=== PATIENT | female | born 1945 | race Caucasian/White ===

== ENCOUNTER 2019-08-29 11:06 | Outpatient (CLI) | payer OTHER | END 2019-08-29 11:08 | disposition home or self-care (01) | LOC: SONOGRAMA 11:06 | DX: E04.1 Nontoxic single thyroid nodule (principal) ==

== ENCOUNTER 2021-03-17 05:17 | Day surgery (SDC) | payer OTHER ==
[~2021-03-17 05:17] MED LIST: COZAAR100 MG PO; CRESTOR10 MG PO; HYDROC PO; TOPROL XL200 MG
[2021-03-17] MEDS ORDERED: PERCOCET 5-3251 EACH PO (09:34)
== END 2021-03-17 14:00 | disposition home or self-care (01) ==
LOC: CIR.AMB 05:17
PROVIDERS: ATTEND Surgery
DX: E04.1 Nontoxic single thyroid nodule (principal); Z20.822 Contact with and (suspected) exposure to COVID-19